=== PATIENT | female | born 1990 | race Caucasian/White ===

== ENCOUNTER 2016-08-26 17:43 | Emergency (ER) | payer MEDICAID ==
[~2016-08-26] VITALS: Ht 165.1 cm; Wt 73.6 kg
--- OUTSIDE RECORDS SUMMARY | 2016-08-26 17:48 | XMS REPORT | Continuity of Care Document ---
Author Author [facility] Organization [facility] Address Unknown Phone Unavailable Care Team Providers Care Media Operator Name Role Phone ZHAO PALOMINO Primary Care Physician [phone] Insurance Providers Guarantor Janet Hdz Address [address] [place] [address] Email DENIED/06/17/16 Payer [facility] Policy Number [id number] Subscriber's Name Janet Hdz Relationship 18 Self Effective Date 16 Expiration Date 16 Advance Directives Directive Response Recorded Date/Time Advanced Directives Type None 06/17/16 6:53am Ordered Resuscitation Status Full Code 06/17/16 10:43am Resuscitation Documents on File No 06/17/16 5:33pm DPOA for Healthcare Only No 06/18/16 10:33am Living Will No 06/17/16 5:33pm Problems Active Problems Medical Problem Onset Date Status Abdominal cramping Unknown Acute Abdominal cramping Unknown Acute Abdominal cramping Unknown Acute Anxiety Unknown Chronic Bipolar 1 disorder Unknown Chronic Contusion of right hip Unknown Acute Depression Unknown Chronic Intentional benzodiazepine overdose Unknown Acute Intoxication by drug Unknown Acute MDD (major depressive disorder), recurrent episode, severe Unknown Multiple personality disorder Unknown Chronic Nausea Unknown Acute PTSD (post-traumatic stress disorder) Unknown Strain of right hip Unknown Acute Past Problems Medical Problem Onset Date Bronchitis Unknown Gastroenteritis Unknown Overdose Unknown Patient left without being seen Unknown UTI (urinary tract infection) Unknown Medications Past Home Medications Medication Directions Ordered Status Buspirone Hcl 10 Mg Tablet, 20 Mg Oral Three Times A Day 06/17/16 Discontinued Clonazepam 0.5 Mg Tablet, 0.5-1 Tab Oral Daily as needed for Anxiety Discontinued Escitalopram Oxalate (Lexapro) 20 Mg Tablet, 20 Mg Oral Bedtime 06/17/16 Discontinued Gabapentin 600 Mg Tablet, 600 Mg Oral Three Times A Day 06/17/16 Discontinued No Daily Meds , 01/04/14 Discontinued Social History Social History Problem Response Recorded Date/Time Onset Date Status Reason for Hospitalization intentional overdose 06/19/2016 11:19am Not Applicable Not Applicable Chewing Tobacco Status No 04/07/2012 2:36am Not Applicable Not Applicable Hx Substance Use No 06/17/2016 6:53am Not Applicable Not Applicable Hx Alcohol Use Y OCCASIONAL 06/17/2016 6:53am Not Applicable Not Applicable Has the pt used tobacco in the last 12 months Yes 06/17/2016 5:59pm Not Applicable Not Applicable Tobacco Usage smoke 07/25/2015 8:39am Not Applicable Not Applicable Query Response Start Date Stop Date Smoking Status Current every day smoker Hospital Discharge Instructions Instructions: Care Instructions: I was in the hospital because (patient own words): I was anxious, have PTSD. Discharge Diet: regular Discharge Activity: as tolerated Follow Up Appointments: Follow-up with primary care physician when she is released from [place] Pending Lab / Results: Follow up w/ your PCP Expected Signs/Symptoms: Not applicable Notify Physician If: Not applicable During Business Hours:: Not applicable After Business Hours:: Please call [phone] and have the stem processing machine operator page the physician. Pain Management/Treatment: Not applicable Wound/Incision Care: Not applicable Condition at time of discharge: Fair Plan of Care Discharge Date 06/19/16 6:20pm Disposition 65 TO [facility] Instructions/Education Provided Adult Overdose (ED) Prescriptions See Medication Section Additional Instructions/Education Medications to be determined by physicians at [place] The only lab pending is confirmation of urine drug screen Care Plan and Goals See Discharge Instructions Section Functional Status Query Response Date Recorded Mobility Status Ambulatory June 17, 2016 12:00pm Assistive Devices None June 17, 2016 12:00pm Activity Limitations None June 17, 2016 12:00pm Feeding Ability Independent June 17, 2016 12:00pm Toileting Ability Independent June 17, 2016 12:00pm Grooming Ability Independent June 17, 2016 12:00pm Dressing Ability Independent June 17, 2016 12:00pm Driving Ability Independent June 17, 2016 12:00pm Housework Ability Independent June 17, 2016 12:00pm Meal Preparation Ability Independent June 17, 2016 12:00pm Ability to complete ADL's impeded by No change June 17, 2016 5:33pm Cognitive/Perceptual Impairments None June 17, 2016 12:00pm Allergies, Adverse Reactions, Alerts Allergen Type Severity Reaction Status Last Updated Latex Allergy Mild ITCHING Active 04/14/16 Immunizations Query Response on File Recorded Date/Time Hx Influenza Vaccination Y unknown 06/17/16 5:59pm Hx Pneumococcal Vaccination unknown 06/17/16 5:59pm Hx Tetanus, Diptheria, Pertussis No 01/04/14 12:15pm Hx Influenza Vaccination Y unknown 06/17/16 5:59pm Hx Tetanus, Diptheria, Pertussis No 01/04/14 12:15pm Influenza Vaccine Hx NONE 06/17/16 6:53am Vital Signs Acute Vital Signs Vital Response Date/Time Temperature (Fahrenheit) 98.8 deg F (96.8 - 99.1) 06/19/2016 4:00pm Temperature (Calculated Celsius) 37.58461 degrees C (36.0 - 37.3) 06/19/2016 4:00pm Pulse Rate (adult) 63 bpm (60 - 100) 06/19/2016 4:11pm Respiratory Rate 20 breaths/min (10 - 20) 06/19/2016 4:00pm O2 Sat by Pulse Oximetry 99 % (90 - 100) 06/19/2016 12:13pm Oxygen Delivery Method Room Air 06/19/2016 4:00pm Blood Pressure 108/57 mm Hg 06/19/2016 4:00pm Blood Pressure Source Automatic Cuff 06/19/2016 4:00pm Height (Feet) 5 feet 06/18/2016 10:33am Height (Inches) 7.00 inches 06/18/2016 10:33am Weight (Kilograms) 57.500 kg 06/18/2016 9:02am Body Mass Index (BMI) 23.0 06/17/2016 6:53am Results Laboratory Results Test Name Result Units Flags Reference Collection Date/Time Result Date/ Time Comments Adenovirus (PCR) NEGATIVE NEGATIVE 04/14/2016 8:03am 04/14/2016 9: 57am Coronavirus Type 229E (PCR) NEGATIVE NEGATIVE 04/14/2016 8:03am 04/14 9:57am Coronavirus Type HKU1 (PCR) NEGATIVE NEGATIVE 04/14/2016 8:03am 04/14 9:57am Coronavirus Type NL63 (PCR) NEGATIVE NEGATIVE 04/14/2016 8:03am 04/14 9:57am Coronavirus Type OC43 (PCR) DETECTED A NEGATIVE 04/14/2016 8:03am 9:57am Human Metapneumovirus (PCR) NEGATIVE NEGATIVE 04/14/2016 8:03am 04/14 9:57am Enterovirus/Rhinovirus (PCR) NEGATIVE NEGATIVE 04/14/2016 8:03am 9:57am Influenza Virus Type A (PCR) NEGATIVE NEGATIVE 04/14/2016 8:03am 9:57am Influenza Virus Type B (PCR) NEGATIVE NEGATIVE 04/14/2016 8:03am 9:57am Parainfluenza Type 1 (PCR) NEGATIVE NEGATIVE 04/14/2016 8:03am 2015 9:57am Parainfluenza Type 2 (PCR) NEGATIVE NEGATIVE 04/14/2016 8:03am 2015 9:57am Parainfluenza Type 3 (PCR) NEGATIVE NEGATIVE 04/14/2016 8:03am 2015 9:57am Parainfluenza Type 4 (PCR) NEGATIVE NEGATIVE 04/14/2016 8:03am 2015 9:57am Respiratory Syncytial Virus (PCR) NEGATIVE NEGATIVE 04/14/2016 8:03am 04/14/2016 9:57am Bordetella parapertussis DNA (PCR) NEGATIVE NEGATIVE 04/14/2016 8: 03am 04/14/2016 9:57am Chlamydia pneumoniae DNA (PCR) NEGATIVE NEGATIVE 04/14/2016 8:03am 9:57am Mycoplasma pneumoniae (PCR) NEGATIVE NEGATIVE 04/14/2016 8:03am 04/14 9:57am White Blood Count 12.6 T/MM3 D H 4.5-11.0 06/18/2016 9:1406/18/2016 9: 44am Red Blood Count 4.79 M/MM3 4.00-5.20 06/18/2016 9:1406/18/2016 9: 44am Hemoglobin 14.7 GM/DL 12-16 06/18/2016 9:1406/18/2016 9:44am Hematocrit 43.8 % 36-46 06/18/2016 9:1406/18/2016 9:44am Mean Corpuscular Volume 91.4 UM3 80-100 06/18/2016 9:1406/18/2016 9: 44am Mean Corpuscular Hemoglobin 30.7 UUG 26-34 06/18/2016 9:142016 9:44am Mean Corpuscular Hemoglobin Concent 33.6 GM/DL 31-37 06/18/2016 9:1406/18/2016 9:44am RDW Standard Deviation 43.0 FL 36.9-50.2 06/18/2016 9:1406/18/2016 9 :44am Platelet Count 230 T/MM3 130-400 06/18/2016 9:1406/18/2016 9:44am Mean Platelet Volume 10.5 UM3 9.4-12.4 06/18/2016 9:1406/18/2016 9: 44am Neutrophils (%) (Auto) 62.9 % 33-66 06/18/2016 9:1406/18/2016 9: 44am Lymphocytes (%) (Auto) 28.1 % 23-45 06/18/2016 9:1406/18/2016 9: 44am Monocytes (%) (Auto) 7.0 % 0-9.0 06/18/2016 9:1406/18/2016 9:44am Eosinophils (%) (Auto) 1.6 % 0-4 06/18/2016 9:1406/18/2016 9:44am Basophils (%) (Auto) 0.2 % 0-2 06/18/2016 9:1406/18/2016 9:44am Immature Granulocyte % (Auto) 0.2 % 0.0-0.5 06/18/2016 9:142016 9:44am Absolute Neutrophils (auto) 7.9 T/MM3 H 1.8-7.7 06/18/2016 9:14am 2016 9:44am Absolute Lymphocytes (auto) 3.5 T/MM3 1-4.8 06/18/2016 9:14am 2016 9:44am Absolute Monocytes (auto) 0.9 T/MM3 H 0-0.8 06/18/2016 9:14am 2016 9:44am Absolute Eosinophils (auto) 0.2 T/MM3 0-0.5 06/18/2016 9:14am 2016 9:44am Absolute Basophils (auto) 0.0 T/MM3 0-0.2 06/18/2016 9:14am 06/18/2016 9:44am Absolute Immature Granulocyte (auto 0.02 T/MM3 0.00-0.03 06/18/2016 9: 14am 06/18/2016 9:44am Icterus Index < 2 0-7 06/19/2016 4:53am 06/19/2016 5:33am Chemistry Specimen Hemolysis < 15 0-25 06/19/2016 4:53am 06/19/2016 5 :33am 0-25: Specimen Exhibited No Hemolysis. Turbidity < 20 0-20 06/19/2016 4:53am 06/19/2016 5:33am Sodium Level 142 MEQ/L 134-144 06/19/2016 4:53am 06/19/2016 5:33am Potassium Level 4.0 MEQ/L 3.6-5 06/19/2016 4:53am 06/19/2016 5:33am Chloride Level 107 MEQ/L 98-107 06/19/2016 4:53am 06/19/2016 5:33am Carbon Dioxide Level 24 MEQ/L 22-30 06/19/2016 4:53am 06/19/2016 5: 33am Anion Gap 11 MEQ/L 5-15 06/19/2016 4:53am 06/19/2016 5:33am Blood Urea Nitrogen 11.0 MG/DL 7-06/19/2016 4:53am 06/19/2016 5: 33am Creatinine 0.8 MG/DL 0.7-1.2 06/19/2016 4:53am 06/19/2016 5:33am BUN/Creatinine Ratio 14 RATIO 6-06/19/2016 4:53am 06/19/2016 5:33am Glomerular Filtration Rate Calc 87 06/19/2016 4:53am 06/19/2016 5: 33am Glucose Level 89 MG/DL 65-110 06/19/2016 4:53am 06/19/2016 5:33am Calculated Osmolality 271 MOSM/KG 261-280 06/19/2016 4:53am 06/19/2016 5:33am Calcium Level 9.6 MG/DL 8.4-10.2 06/19/2016 4:53am 06/19/2016 5:33am Phosphorus Level 3.9 MG/DL 2.5-4.5 06/18/2016 9:14am 06/18/2016 9:50am Total Bilirubin 1.00 MG/DL 0.20-1.30 06/19/2016 4:53am 06/19/2016 5: 33am Alkaline Phosphatase 55 U/L 38-126 06/19/2016 4:53am 06/19/2016 5:33am Total Protein 6.9 G/DL 6.3-8.2 06/19/2016 4:53am 06/19/2016 5:33am Albumin 4.1 G/DL 3.5-5.0 06/19/2016 4:53am 06/19/2016 5:33am Globulin 2.8 G/DL 2.4-3.6 06/19/2016 4:53am 06/19/2016 5:33am Albumin/Globulin Ratio 1.5 RATIO 1.1-2.2 06/19/2016 4:53am 06/19/2016 5 :33am Aspartate Amino Transf (AST/SGOT) 26 U/L 14-36 06/19/2016 4:53am 2016 5:33am Alanine Aminotransferase (ALT/SGPT) 26 U/L 9-52 06/19/2016 4:53am 06/19 5:33am Total Creatine Kinase 83 U/L 30-135 06/17/2016 7:04am 06/17/2016 12: 23pm Magnesium Level 2.2 MG/DL 1.6-2.3 06/19/2016 4:53am 06/19/2016 5:33am Acetaminophen Level < 10 UG/ML L 10-30 06/17/2016 7:04am 06/17/2016 7: 51am TOXIC <4 HR POST INGESTION: >150 MG/L; TOXIC <12 HR POST INGESTION: >50 MG/L Salicylates Level < 1.0 MG/DL L 2-20 06/17/2016 7:04am 06/17/2016 7: 51am Alcohol, Quantitative <10 MG/DL <10 06/17/2016 7:04am 06/17/2016 7: 51am Urine Collection Type CLEANCATCH-MIDSTREAM 06/17/2016 7:33am 2016 7:46am Urine Color YELLOW YELLOW 06/17/2016 7:33am 06/17/2016 7:46am Urine Turbidity CLEAR CLEAR 06/17/2016 7:33am 06/17/2016 7:46am Urine Specific Amelia <=1.005 L 1.015-1.025 06/17/2016 7:33am 2016 7:46am Urine pH 5.5 5.0-8.0 06/17/2016 7:33am 06/17/2016 7:46am Urine Leukocyte Esterase NEGATIVE NEGATIVE 06/17/2016 7:33am 2016 7:46am Urine Nitrite NEGATIVE NEGATIVE 06/17/2016 7:33am 06/17/2016 7:46am Urine Protein NEGATIVE NEGATIVE 06/17/2016 7:33am 06/17/2016 7:46am Urine Glucose (UA) NEGATIVE NEGATIVE 06/17/2016 7:33am 06/17/2016 7: 46am Urine Ketones NEGATIVE NEGATIVE 06/17/2016 7:33am 06/17/2016 7:46am Urine Urobilinogen 0.2 EU/DL NORMAL 06/17/2016 7:33am 06/17/2016 7: 46am Urine Bilirubin NEGATIVE NEGATIVE 06/17/2016 7:33am 06/17/2016 7: 46am Urine Blood NEGATIVE NEGATIVE 06/17/2016 7:33am 06/17/2016 7:46am Urinalysis Comment MICROSCOPIC NOT IND. 06/17/2016 7:33am 2016 7:46am Name: JANET HDZ Unit #: [id number] : 1990 Sex: F DISCHARGE SUMMARY Admit Date: 06/17/16 Report #: [id number] [facility] General Date Date DATE: 06/19/16 TIME: 11:13 Attending Physician Vipul Giron MD Admitting Physician Vipul Giron MD Consulting Physician Jovanna Irvin MD Admitting Diagnosis Overdose Discharge Diagnosis Intentional overdose of benzodiazepine Drug intoxication Posttraumatic stress disorder Major depressive disorder, recurrent episode, severe The patient also carries a past medical history with diagnoses of Bipolar disorder type I, Anxiety, and History of multiple personality disorder Procedures None Laboratory Laboratory Tests Test 06/18/16 09:14 06/19/16 04:53 White Blood Count 12.6T/MM3 (4.5-11.0) Red Blood Count 4.79M/MM3 (4.00-5.20) Hemoglobin 14.7GM/DL (12-16) Hematocrit 43.8% (36-46) Mean Corpuscular Volume 91.4UM3 (80-100) Mean Corpuscular Hemoglobin 30.7UUG (26-34) Mean Corpuscular Hemoglobin Concent 33.6GM/DL (31-37) RDW Standard Deviation 43.0FL (36.9-50.2) Platelet Count 230T/MM3 (130-400) Mean Platelet Volume 10.5UM3 (9.4-12.4) Immature Granulocyte % (Auto) 0.2% (0.0-0.5) Neutrophils (%) (Auto) 62.9% (33-66) Lymphocytes (%) (Auto) 28.1% (23-45) Monocytes (%) (Auto) 7.0% (0-9.0) Eosinophils (%) (Auto) 1.6% (0-4) Basophils (%) (Auto) 0.2% (0-2) Absolute Immature Granulocyte (auto 0.02T/MM3 (0.00-0.03) Absolute Neutrophils (auto) 7.9T/MM3 (1.8-7.7) Absolute Lymphocytes (auto) 3.5T/MM3 (1-4.8) Absolute Monocytes (auto) 0.9T/MM3 (0-0.8) Absolute Eosinophils (auto) 0.2T/MM3 (0-0.5) Absolute Basophils (auto) 0.0T/MM3 (0-0.2) Turbidity < 20 (0-20) < 20 (0-20) Sodium Level 143MEQ/L (134-144) 142MEQ/L (134-144) Potassium Level 4.5MEQ/L (3.6-5) 4.0MEQ/L (3.6-5) Chloride Level 108MEQ/L (98-107) 107MEQ/L (98-107) Carbon Dioxide Level 23MEQ/L (22-30) 24MEQ/L (22-30) Anion Gap 12MEQ/L (5-15) 11MEQ/L (5-15) Blood Urea Nitrogen 14.0MG/DL (7-17) 11.0MG/DL (7-17) Creatinine 0.8MG/DL (0.7-1.2) 0.8MG/DL (0.7-1.2) Glomerular Filtration Rate Calc 87 87 BUN/Creatinine Ratio 18RATIO (6-26) 14RATIO (6-26) Glucose Level 70MG/DL (65-110) 89MG/DL (65-110) Calculated Osmolality 274MOSM/KG (261-280) 271MOSM/KG (261-280) Calcium Level 9.5MG/DL (8.4-10.2) 9.6MG/DL (8.4-10.2) Phosphorus Level 3.9MG/DL (2.5-4.5) Magnesium Level 2.2MG/DL (1.6-2.3) 2.2MG/DL (1.6-2.3) Icterus Index < 2 (0-7) < 2 (0-7) Albumin 4.3G/DL (3.5-5.0) 4.1G/DL (3.5-5.0) Chemistry Specimen Hemolysis < 15 (0-25) < 15 (0-25) Total Bilirubin 1.00MG/DL (0.20-1.30) Aspartate Amino Transf (AST/SGOT) 26U/L (14-36) Alanine Aminotransferase (ALT/SGPT) 26U/L (9-52) Alkaline Phosphatase 55U/L (38-126) Total Protein 6.9G/DL (6.3-8.2) Globulin 2.8G/DL (2.4-3.6) Albumin/Globulin Ratio 1.5RATIO (1.1-2.2) Microbiology none Radiology none History of Present Illness Patient is a 25-year-old female who was brought to the emergency room this morning for evaluation of benzodiazepine overdose. It is reported that she took 15 tablets of 0.5 milligram tabs of Klonopin approximately 5-6 a.m. this morning. Total ingestion is Klonopin 7.5 milligrams with half-life is 20- 50 hours. She reports that she took them all at one time to help with her anxiety, and denies the intention of self-harm. The WBC count is normal 8.7, hemoglobin 14.9, hematocrit 44, platelet count 237. Sodium is 145, potassium 3.8, BUN 10, creatinine 0.7. Alcohol is undetectable, acetaminop hen and salicylate levels are negative. Urine drug screen was obtained that was positive for amphetamines, benzodiazepine, and cannabis. Urinalysis is negative and urine test is also negative. While in the emergency room. Patient is uncooperative and attempts to run out of the department. She is belligerent towards nursing staff and his aggressive, hitting, kicking, spitting. Given Police Department were contacted twice while in the emergency room to assist with safety restraint. Given patient's aggressive behavior towards others. Hospitalist services were contacted and accepted patient for outpatient admission for further evaluation and monitoring. It is expected that her stay will be less than 2 overnights. She is seen on initial examination, while still in the emergency room. She is very upset, yelling, attempting to get out of bed and continues to be physically and verbally aggressive towards nursing staff. Hospital Course 06/18/16- Patient has continued to demonstrate aggressive behaviors overnight. Attempted to elope multiple times yesterday requiring EDE assistance. She continues to make suicidal statements with plan. She is currently sedated. Psych consult is in place- notified yesterday by OTOLARYNGOLOGY SURGEON. Suspect she will need inpatient psychiatric monitoring and stabilization. Polysubstance abuse, likely methamphetamine toxicity with severe anxiety and resultant benzo OD. Need to recheck labs, will do so if pt. will cooperate. Start IVF if able. Pt's severe agitation has limited some care. ALICIA Hammer. Continue supportive care. DC disposition per psych recommendations. Awaiting psych eval and placement. Pt more calm with chemical restraints. Cont. physical restrains and obtain renal panel and EKG to make sure pt not having any major complications from the ativan/haldol she is receiving in high doses. 06/19/2016-Dr. Wynn The patient was resting in bed prior to my arrival. Heart rate was in the mid 90s to 100. Systolic blood pressure in the low 100s. Oxygenation is normal. When I introduced myself the patient became tearful and anxious and stated she just wanted to go home. She stated she had a job interview and her daughter to take care of. I stated that we needed to get her emotions and depression under cont rol first. Transfer to [facility] has already been arranged and a doctor to doctor call had been made by physicians yesterday. She appears medically stable. Comments a metabolic profile today is entirely normal. She is oxygenating well and is afebrile. Heart rate becomes elevated when she is agitated but then normalizes. She is alert and appears in no physical distress. Chest is clear to auscultation. Cardiovascular reveals a regular rate and rhythm. Skin is warm and dry and without rashes. Neurologic reveals no focal deficits. She is eating and drinking without difficulties. EKG yesterday was normal. Telemetry shows no arrhythmias. Plan to transfer to inpatient psychiatric facility per recommendations of psychiatry. The patient may not leave AGAINST MEDICAL ADVICE. She is currently in one point leather restraint at her ankle. She has escaped the hospital during this hospitalization and had to be brought back in. She needs to remain in restraint this time. Will transfer to psychiatric inpatient facility when transportation has been arranged. Problems: (1) Intentional benzodiazepine overdose Status: Acute (2) Bipolar 1 disorder Status: Chronic (3) Anxiety Status: Chronic (4) Depression Status: Chronic (5) Multiple personality disorder Status: Chronic (6) Intoxication by drug Status: Acute Code Status Full Code Home Meds Discontinued Reported Medications Escitalopram Oxalate (Lexapro) 20 Mg Tablet, 20 MG PO HS 06/17/16 Gabapentin (Gabapentin) 600 Mg Tablet, 600 MG PO TID 06/17/16 Clonazepam (Clonazepam) 0.5 Mg Tablet, 0.5-1 TAB PO DAILY Y for ANXIETY 06/17/16 Buspirone HCl (Buspirone HCl) 10 Mg Tablet, 20 MG PO TID 06/17/16 Face to Face Encounter I met with patient on the day of dismissal and discussed follow up appointments , medications, and safety plan. Discharge Disposition transfer to [facility] Copies To 1: MEGHAN MARINELLI STEPHANIE L MD Jun 19, 2016 11:16 Procedures Procedure Status Date Provider(s) Chest x-ray 2vw frontal&latl Completed 04/14/16 Chylmd pneum dna amp probe Completed 04/14/16 M.pneumon dna amp probe Completed 04/14/16 Resp virus - targets Completed 04/14/16 Detect agent nos dna amp Completed 04/14/16 Emergency dept visit Completed 04/14/16 Encounters Encounter Location Arrival/Admit Date Discharge/Depart Date Attending Provider Discharged Inpatient (obs) [facility] 06/17/16 10:42am 06/19/16 6 :20pm VIPUL GIRON MD Departed Emergency Room [facility] 04/14/16 7:48am 04/14/16 9: 35am MARY MONDRAGON DO
[2016-08-26 17:50] VITALS: Ht 165.1 cm; Wt 73.6 kg
[2016-08-26] MEDS ORDERED: FLUT12AE5 INH (18:45)
[2016-08-26] MEDS ORDERED: CLON0.5T4 PO (18:45)
[2016-08-26] MEDS ORDERED: ALBU8.5H INH (18:45)
[2016-08-26] MEDS ORDERED: OLAN10TA21 PO (18:45)
--- NOTE | 2016-08-26 18:45 | NUR ---
PROVIDER DR. SCHROEDER AT BEDSIDE FOR EXAM.
[2016-08-26] MEDS ORDERED: DIVA500T55 PO (18:50)
[2016-08-26] MEDS ORDERED: ESCI10TA47 PO (18:50)
[2016-08-26] MEDS ORDERED: METO25TA6 PO (18:50)
--- NOTE | 2016-08-26 18:51 | ERPDOC ---
Departure Disposition Decision Date: August 26, 2016 Disposition Decision Time: 19:56 Disposition: 07 AGAINST MEDICAL ADVICE Impression Impression Impression: Primary Impression: Closed head injury Encounter type: initial encounter Qualified Codes: S09.90XA - Unspecified injury of head, initial encounter Severity: Moderate Condition: Against Medical Advice Seen By: Physician only Referrals: ZHAO PALOMINO (PCP) MEGHAN MARINELLI DO (Family) 1 Day Patient Instructions: Head Injury (ED) Problems/Meds/Labs Reviewed?: Yes Medications reviewed and manag: Yes Follow up care ordered?: Yes Mental Status: Alert, Oriented Pediatric Illness HPI General Chief Complaint: Fall Stated Complaint: FALL/ HEAD INJURY Time Seen by MD: 18:42 Source: patient Exam Limitations: no limitations HPI - Pediatric Illness Initial Comments 26-year-old female presents to the emergency department after suffering a mechanical fall on the stairs. Patient states that she did strike her head during her fall. The fall was mechanical in nature when the patient tripped over her flip-flop. Patient notes a generalized headache. No neck pain. No loss of consciousness. Pain is mild. No radiation. Pain is dull. Patient denies any other injuries. No other complaints or associated symptoms. Patient was home when the incident occurred. Symptoms have been persistent in nature since onset. She does not note any exacerbating or remitting factors. No other complaints or associated symptoms. Occurred At: home Onset: Constant Allergies: Coded Allergies: latex (Verified Allergy, Mild, ITCHING, 08/26/16) Pediatric PMH Pediatric PMH PMH Comments Psychiatric History - Multiple Personality disorder Past Medical History GI: constipation Integumentary: psoriasis Psychological: depression Pediatric Surgical Hx Surgical Hx Comments Negative. Surgical History General: other, tonsils Reproductive/: Family History Family PMH: FOUND: other Family History Comments Negative. Vaccines Hx Tetanus, Diptheria, Pertuss: No Social History Tobacco Usage: smoke # of Packs/Tins per Day: 1 Alcohol Usage: rarely Drug Usage: none Sexuality: male partner Residence: home Review of Systems Constitutional Constitutional: DENIES: chills, fever Eyes General: DENIES: erythema, exudate Lids/Accessories: DENIES: erythema, swelling Vision: DENIES: acuity, blurring ENMT Ears: DENIES: drainage, erythema Hearing: DENIES: hearing loss Balance: DENIES: ataxia, falling to one side Sinuses: DENIES: congestion, pain Nose: DENIES: nosebleeds, pain Mouth/Throat: DENIES: painful swallowing, sore throat Teeth: DENIES: pain Jaw: DENIES: pain Cardiovascular Cardiac: DENIES: chest pain, dyspnea on exertion Rhythm/Rate: DENIES: irregular beat, palpitations Vascular: DENIES: pedal edema, unilateral swelling Pulmonary Respiratory: DENIES: cough, dyspnea, pleuritic chest pain, sputum GI Upper Abdomen: DENIES: nausea, pain, vomiting Lower Abdomen: DENIES: diarrhea, pain General: DENIES: dysuria, frequency Musculoskeletal General: DENIES: joint pain, tenderness Integumentary Skin: DENIES: itching, rash Neurological General: DENIES: headache, numbness, weakness Psychiatric Psychiatric: DENIES: emotional instability, suicidal ideation/attempt Hematologic/Lymphatic Hematologic/Lymphatic: DENIES: frequent nosebleeds, lymphadenopathy Allergic/Immunological Allergic/Immunoligical: DENIES: allergic reactions, hives Physical Exam General General Nourishment: well nourished, well developed, appears stated age, no acute distress, adult General Body Habitus: well groomed Vitals and Pain First Documented Vital Signs Date Time Temp Pulse Resp B/P Pulse Ox O2 Delivery O2 Flow Rate FiO2 08/26/16 17:50 98.8 84 18 124/64 98 Room Air Weight: Kilograms: 73.600 Height (feet): 5 Height (inches): 5.00 Triage Pain Scale: RN VS reviewed by Provider: Yes Normal Exams: Eyes: Pupils are PERRLA w/ EOMI, No scleral icterus, irritation, or foreign bodies noted ENMT: No facial trauma, nasal exudates, pharyngeal erythema, or exudates are noted Dental: No fractured, loose, or missing teeth noted Neck: without adenopathy, JVD, bruits or thyromegaly Chest/Resp: Clear all whatley, with good airflow, and symmetry bilaterally CV: Regular rate and rhythm, without murmur or gallop, Pulses 2+ all extremities, capillary refill, <2 seconds all ext., no pedal edema noted Abdomen: Bowel sounds positive, soft, non-tender, non-distended, no hepatosplenomegaly, masses or bruits noted Lymphatic: No lymphadenopathy, or lymphedema noted Musculoskeletal: No tenderness, or deformity noted, good range of motion, all extremities Integumentary: No rashes, hives, or bruising noted, hair and nails, without abnormality Neurologic: Patient is alert, and oriented, cranial nerves, motor/sensory/ cerebellar, exams w/o gross deficits, to observation Psychiatric: Patient exhibits, appropriate attention, emotion and affect ENMT (brief) Comments Mild bruising noted to the left cheek. No crepitus or tenderness over the cheekbone. No raccoon eyes, Garcia sign, hemotympanum or CSF leak. The midface is stable. No septal or auricular hematoma. No malocclusion of the jaw. No midline tenderness to the cervical/thoracic/lumbar spine. Pelvis is nontender to compression. Gait is stable. Neck (brief) Neck: FOUND: trachea midline, NOT FOUND: tenderness Differential Diagnoses Considering: Other (concussion/closed head injury/intercerebral hemorrhage/ fracture) Progress Results/Orders Orders Procedure Category Date Status Time LAB 08/26/16 Complete Qualitative, Urine 18:49 Tetanus,Diphth,A PHA 08/26/16 Complete Pertus (Tdap) (Adacel) 20:00 Lab Results Laboratory Tests Test 08/26/16 18:52 Urine Test Negative Medications Current ED Medications Diphtheria/ Tetanus/Acell Pertussis (Adacel) 0.5 ml O ONCE IM ; Start 08/26/16 at 20:00; Stop 08/26/16 at 20:01; Status DC Progress Progress Patient was noted to have an abrasion over her bilateral knees. She declines x- ray imaging of the knees. Patient's tetanus status was updated. Patient is alert and oriented 4. Patient is clinically sober. Patient refuses CT scan of the head/face/neck. Patient is aware that refusing further evaluation and treatment could result in and/or permanent disability. Patient verbalizes agreement and understanding. Patient signed the AMA form and leaves the emergency department at this time. Patient's friend is at bedside and is supportive of her decision. Patient underwent repeat attempt at counseling in order to get her to change her mind stay for further evaluation and treatment which he declines. Patient signed the AMA form and leaves the emergency department at this time AGAINST MEDICAL ADVICE. She is to return to the emergency Department if her condition worsens or changes in any manner or if she changes her mind and wishes to be re-evaluated. She is [facility]. Patient was provided with a work note at her request. Patient signed the AMA form and leaves the emergency department at this time AGAINST MEDICAL ADVICE. Risk vs benefits were discussed in detail with the patient who verbalized agreement and understanding but does not change her mind. JORDON SCHROEDER DO August 26, 2016 18:51
--- NOTE | 2016-08-26 19:45 | NUR ---
STATUS PT SITTING UP IN CART. IS REQUESTING HOW LONG WAIT WILL BE BEFORE DISMISSAL. 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 PT STATES "IS THERE ANY WAY I COULD GET THE WORK NOTE AND GO HOME, OR HOW LONG DO YOU THINK IT WILL BE?" RADIOLOGY CONTACTED, AND ADVISED THAT PT IS NEXT TO GO FOR SCANS ONCE CURRENT PT BACK IN .
--- NOTE | 2016-08-26 19:49 | NUR ---
STATUS PT REPORTS IS GOING TO HAVE TO LEAVE SOONER THAN EXPECTED. PROVIDER NOTIFIED. DR. SCHROEDER AT BEDSIDE TO SPEAK WITH PT.
[2016-08-26] MEDS ORDERED: TETANUS,DIPHTH,a PERTUS (Tdap) 0.5 ML VIAL IM ONE (20:00)
[2016-08-26 20:02] VITALS: BP 116/62; PULSE 67; RESP 18; TEMP 98.8; O2SAT 97
--- NOTE | 2016-08-26 20:02 | NUR ---
AMA RISKS OF LEAVING AMA REVIEWED WITH PT BY THIS RN WITH INSTRUCTIONS TO RETURN TO ER WITH WORSENING CONDITION. PT VERBALIZES UNDERSTANDING OF INSTRUCTIONS, DENIES QUESTIONS. DENIES CHANGE IN PAIN, WITH CURRENT RATING 9/10. PT AMBULATES OUT OF ER WITH STEADY GAIT ACCOMP BY FRIEND AT THIS TIME.
== END 2016-08-26 20:02 | disposition left against medical advice (07) ==
LOC: ED 17:43
DX: S00.83XA Contusion of other part of head, initial encounter (principal); S80.212A Abrasion, left knee, initial encounter; S80.211A Abrasion, right knee, initial encounter; W10.8XXA Fall (on) (from) other stairs and steps, initial encounter; Y93.9 Activity, unspecified; Y92.008 Other place in unspecified non-institutional (private) residence as the place of occurrence of the external cause; Y99.8 Other external cause status
CPT/HCPCS: 81025

== ENCOUNTER 2016-09-13 09:18 | Emergency (ER) | payer MEDICAID ==
[~2016-09-13] VITALS: Ht 165.1 cm; Wt 74.7 kg
[~2016-09-13 09:18] MED LIST: ALBU8.5H INH; CLON0.5T4 PO; DIVA500T55 PO; ESCI10TA47 PO; FLUT12AE5 INH; METO25TA6 PO; OLAN10TA21 PO
[2016-09-13 09:19] VITALS: Ht 165.1 cm; Wt 74.7 kg
--- OUTSIDE RECORDS SUMMARY | 2016-09-13 09:21 | XMS REPORT | Continuity of Care Document ---
Author Author [facility] Organization [facility] Address Unknown Phone Unavailable Care Team Providers Care Manpower Development Specialist Manager Name Role Phone GEORGETTE, ZHAO Delatorre Primary Care Physician [phone] Insurance Providers Guarantor Janet Hdz Address [address] [place] [address] Email DENIED 08-26-16 Payer [facility] Policy Number [id number] Subscriber's Name Janet Hdz Relationship 18 Self Effective Date 16 Expiration Date 16 Advance Directives Directive Response Recorded Date/Time Advanced Directives Type None 08/26/16 6:38pm Chief Complaint and Reason for Visit Chief Complaint Fall Reason for Visit Closed head injury Problems Active Problems Medical Problem Onset Date [...] Problems Medical Problem Onset Date Bronchitis Unknown Closed head injury Unknown Gastroenteritis Unknown Overdose Unknown Patient left without being seen Unknown UTI (urinary tract infection) Unknown Medications Current Home Medications Medication Dose Units Route Directions Days Qty Instructions Start Date Albuterol Sulfate (Proair Hfa 90 Mcg/Actuation) 8.5 Gm Hfa.aer.ad 1 Puff Inhalation 8 08/26/16 Clonazepam 0.5 Mg Tablet 1 Tab Oral Daily 30 08/26/16 Divalproex Sodium (Divalproex Sodium Er) 500 Mg Tab.er.24h 1 Tab Oral Bedtime 60 08/26/16 Escitalopram Oxalate 10 Mg Tablet 1 Tab Oral Daily 30 08/26/16 Fluticasone Propionate (Flovent Hfa 110MCG) 120 Puff/12 G Inhaler 1 Puff Inhalation Twice A Day 12 08/26/16 Metoprolol Tartrate 25 Mg Tablet 1 Tab Oral Twice A Day as needed for Anxiety 60 08/26/16 Olanzapine 10 Mg Tablet 1 Tab Oral Bedtime 30 08/26/16 Past Home Medications Medication Directions Ordered Status [...] Problem Response Recorded Date/Time Onset Date Status Chewing Tobacco Status No 04/07/2012 2:36am Not Applicable Not Applicable Hx Substance Use No 08/26/2016 6:40pm Not Applicable Not Applicable Hx Alcohol Use Y OCCASIONAL 08/26/2016 6:40pm Not Applicable Not Applicable Has the pt used tobacco in the last 12 months Yes 06/17/2016 5:59pm Not Applicable Not Applicable Tobacco Usage smoke 07/25/2015 8:39am Not Applicable Not Applicable Query Response Start Date Stop Date Smoking Status Current every day smoker Hospital Discharge Instructions No hospital discharge instructions. Plan of Care Discharge Date 08/26/16 8:02pm Disposition 07 AGAINST MEDICAL ADVICE Condition at Discharge Against Medical Advice Instructions/Education Provided Head Injury (ED) Prescriptions See Medication Section Referrals ZHAO PALOMINO Address: [address] [place] [id number] Note: MEGHAN MARINELLI DO Order Date: 2 Days Address: [address] [address] Note: Care Plan and Goals Physician Care Plan Problem: Closed Head Injury / AMA Goal: Follow up with primary care provider Instructions: Take medications and follow care plan as discussed/written Functional Status No functional status results. Allergies, Adverse Reactions, Alerts Allergen Type Severity Reaction Status Last Updated Latex Allergy Mild ITCHING Active 08/26/16 Immunizations Query Response on File Recorded Date/Time Hx Influenza Vaccination Y unknown 06/17/16 5:59pm Hx Pneumococcal Vaccination unknown 06/17/16 5:59pm Hx Tetanus, Diptheria, Pertussis No 01/04/14 12:15pm Hx Influenza Vaccination Y unknown 06/17/16 5:59pm Hx Tetanus, Diptheria, Pertussis No 01/04/14 12:15pm Influenza Vaccine Hx NONE 08/26/16 6:40pm Vital Signs Acute Vital Signs Vital Response Date/Time Temperature (Fahrenheit) 98.8 deg F (96.8 - 99.1) 08/26/2016 8:02pm Temperature (Calculated Celsius) 37.18099 degrees C (36.0 - 37.3) 08/26/2016 8:02pm Pulse Rate (adult) 67 bpm (60 - 100) 08/26/2016 8:02pm Respiratory Rate 18 breaths/min (10 - 20) 08/26/2016 8:02pm O2 Sat by Pulse Oximetry 97 % (90 - 100) 08/26/2016 8:02pm Oxygen Delivery Method Room Air 06/19/2016 4:00pm Blood Pressure 116/62 mm Hg 08/26/2016 8:02pm Blood Pressure Source Automatic Cuff 06/19/2016 4:00pm Height (Feet) 5 feet 08/26/2016 5:50pm Height (Inches) 5.00 inches 08/26/2016 5:50pm Weight (Kilograms) 73.600 kg 08/26/2016 5:50pm Body Mass Index (BMI) 27.0 08/26/2016 5:50pm Results Laboratory Results Test Name Result Units Flags Reference Collection Date/Time Result Date/ Time Comments White Blood Count 12.6 T/MM3 D H 4.5-11.0 06/18/2016 9:14am 06/18/2016 9: 44am Red Blood Count 4.79 M/MM3 4.00-5.20 06/18/2016 9:14am 06/18/2016 9: 44am Hemoglobin 14.7 GM/DL 12-16 06/18/2016 [...] Neutrophils (%) (Auto) 62.9 % 33-66 06/18/2016 9:06/18/2016 9: 44am Lymphocytes (%) (Auto) 28.1 % 23-45 06/18/2016 9:06/18/2016 9: 44am Monocytes (%) (Auto) 7.0 % 0-9.0 06/18/2016 9:1406/18/2016 9:44am Eosinophils (%) (Auto) 1.6 % 0-4 06/18/2016 9:06/18/2016 9:44am Basophils (%) (Auto) 0.2 % 0-2 06/18/2016 9:1406/18/2016 9:44am Immature Granulocyte % (Auto) 0.2 % 0.0-0.5 06/18/2016 9:142016 9:44am Absolute Neutrophils (auto) 7.9 T/MM3 H 1.8-7.7 06/18/2016 9:142016 9:44am Absolute Lymphocytes (auto) 3.5 T/MM3 1-4.8 06/18/2016 9:142016 9:44am Absolute Monocytes (auto) 0.9 T/MM3 H [...] CLEAR 06/17/2016 7:33am 06/17/2016 7:46am Urine Specific [place] <=1.005 L 1.015-1.025 06/17/2016 7:33am 2016 7:46am [...] MICROSCOPIC NOT IND. 06/17/2016 7:33am 2016 7:46am Procedures Procedure Status Date Provider(s) Routine venipuncture Completed 06/17/16 Routine venipuncture Completed 06/17/16 Comprehen metabolic panel Completed 06/17/16 Comprehen metabolic panel Completed 06/17/16 Renal function panel Completed 06/17/16 Drug test prsmv instrmnt Completed 06/17/16 Drug screen quantalcohols Completed 06/17/16 Analgesics non-opioid 1 or 2 Completed 06/17/16 Analgesics non-opioid 1 or 2 Completed 06/17/16 Urinalysis auto w/o scope Completed 06/17/16 Urine test Completed 06/17/16 Assay of ck (cpk) Completed 06/17/16 Assay of magnesium Completed 06/17/16 Assay of magnesium Completed 06/17/16 Complete cbc w/auto diff wbc Completed 06/17/16 Complete cbc w/auto diff wbc Completed 06/17/16 Electrocardiogram tracing Completed 06/17/16 Electrocardiogram tracing Completed 06/17/16 Hydrate iv infusion add-on Completed 06/17/16 Ther/proph/diag inj sc/im Completed 06/17/16 Ther/proph/diag inj iv push Completed 06/17/16 Tx/pro/dx inj new drug addon Completed 06/17/16 Tx/pro/dx inj new drug addon Completed 06/17/16 Emergency dept visit Completed 06/17/16"HOSPITAL OBSERVATION SERVICE, PER HOUR" Completed 06/17/16"HOSPITAL OBSERVATION SERVICE, PER HOUR" Completed 06/17/16"HOSPITAL OBSERVATION SERVICE, PER HOUR" Completed 06/17/16"HOSPITAL OBSERVATION SERVICE, PER HOUR" Completed 06/17/16"HOSPITAL OBSERVATION SERVICE, PER HOUR" Completed 06/17/16"INJECTION, HALOPERIDOL, UP TO 5 MG" Completed 06/17/16"INJECTION, HALOPERIDOL, UP TO 5 MG" Completed 06/17/16"INJECTION, HALOPERIDOL, UP TO 5 MG" Completed 06/17/16"INJECTION, HALOPERIDOL, UP TO 5 MG" Completed 06/17/16"INJECTION, LORAZEPAM, 2 MG" Completed 06/17/16"INJECTION, LORAZEPAM, 2 MG" Completed 06/17/16"INJECTION, LORAZEPAM, 2 MG" Completed 06/17/16"INJECTION, LORAZEPAM, 2 MG" Completed 06/17/16"INJECTION, LORAZEPAM, 2 MG" Completed 06/17/16"INJECTION, LORAZEPAM, 2 MG" Completed 06/17/16"INJECTION, LORAZEPAM, 2 MG" Completed 06/17/16"INJECTION, LORAZEPAM, 2 MG" Completed 06/17/16"INJECTION, LORAZEPAM, 2 MG" Completed 06/17/16"INJECTION, LORAZEPAM, 2 MG" Completed 06/17/16"INFUSION, NORMAL SALINE SOLUTION , 1000 CC" Completed 06/17/165% DEXTROSE/NORMAL SALINE (500 ML=1 UNIT) Completed 06/17/16 Encounters Encounter Location Arrival/Admit Date Discharge/Depart Date Attending Provider Departed Emergency Room [facility] 08/26/16 5:43pm 08/26/16 8: 02pm JORDON SCHROEDER DO Discharged Inpatient (obs) [facility] 06/17/16 10:42am 06/19/16 6 :20pm TEQUILA GIRON MD Recent Diagnosis
[2016-09-13] MEDS ORDERED: PREN1TAB73 PO (09:42)
[2016-09-13] MEDS ORDERED: PYRIDOXINE 100 MG TABLET PO ONE (09:45)
[2016-09-13] MEDS ORDERED: DiphenhydrAMINE 25 MG CAPSULE PO ONE (09:45)
--- NOTE | 2016-09-13 09:46 | ERPDOC ---
Departure Disposition Decision Date: September 13, 2016 Disposition Decision Time: 10:24 Disposition: 01 DISCHARGED HOME, SELF-CARE Impression Impression Impression: Primary Impression: Morning sickness Additional Impression: Weeks of gestation: less than 8 weeks Qualified Codes: Z3A.01 - Less than 8 weeks gestation of Severity: Moderate Condition: Improved Seen By: Physician only Referrals: ZHAO PALOMINO (PCP) 1 Week OTHER (Family) Patient Instructions: Acute Nausea and Vomiting (ED) Problems/Meds/Labs Reviewed?: Yes Medications reviewed and manag: Yes Additional Instructions: You have nausea and vomiting of early . Vitamin B6 and benadryl can help this a lot. Take the zofran if the B6 and benadryl don't control your nausea. Follow up with your doctor in the next week. Departure Forms: Return to Work/School Permit Follow up care ordered?: Yes Mental Status: Alert, Oriented Scripts Ondansetron (Zofran Odt) 4 Mg Tab.rapdis 4 MG PO QID Y for NAUSEA &/OR VOMITING, #20 TAB 0 Refills Prov: AUGUSTJOSIAS Cid DO 09/13/16 HPI - Abdominal Pain General Chief Complaint: Nausea,Vomiting,Diarrhea Stated Complaint: PUKING BLOOD Time Seen by Provider: 09:31 Source: patient History/Exam Limitations: no limitations HPI - Abdominal Pain Initial Comments 26yo woman presents to the ER today for N/V. Pt is 7wks ; has significant morning sickness. Pt is not taking anything for her morning sickness , because "I don't know what to take". Pt had similar sx with her first ; can't remember what she took during her last . Pt feels like she vomited some blood while at work today; no gross blood, but she had the taste of blood in her mouth. Pt was sent home from work after vomiting x2. Occurred At: home, work Onset: Rapid, Constant Duration: 4-6 hrs Quality: cramping Location: periumbilical Activities at Onset: rest Associated Symptoms: nausea/vomiting Hx of Similar Symptoms: Yes Allergies: Coded Allergies: latex (Verified Allergy, Mild, ITCHING, 09/13/16) No Known Drug Allergies (Verified Allergy, Unknown, 09/13/16) Past History Patient Surgical History Tonsilectomy Past Medical History Hx Echocardiogram: No GI: constipation Integumentary: psoriasis Psychological: depression Surgical History General: other, tonsils Reproductive/: Family History Family PMH: FOUND: other Vaccines Hx Influenza Vaccination: Yes (unknown) Hx Tetanus, Diptheria, Pertuss: No Social History Does patient use chewing tobac: No # of Packs/Tins per Day: 1 Second Hand Exposure: No Substance Use Type: does not use Alcohol Intake: occasionally, a few times a month Marital Status: In a relationship Sexuality: male partner Housing: house Household Members: significant other, children Service: No Current Occupational Status: employed 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 Hazard: No Advance Directives: Yes Full Code Review of Systems GI Upper Abdomen: nausea, vomiting All other Systems All Other Systems: Reviewed and Negative Physical Exam General General Nourishment: well nourished, well developed, appears stated age, no acute distress, adult, obese General Body Habitus: well groomed Vitals and Pain First Documented Vital Signs Date Time Temp Pulse Resp B/P Pulse Ox O2 Delivery O2 Flow Rate FiO2 09/13/16 09:19 98.2 74 16 118/72 98 Room Air Weight: Kilograms: 74.700 Height (feet): 5 Height (inches): 5.00 Triage Pain Scale: RN VS reviewed by Provider: Yes Normal Exams: Head: Normocephalic w/o trauma Eyes: Pupils are PERRLA w/ EOMI, No scleral icterus, irritation ENMT: No facial trauma, nasal exudates, pharyngeal erythema Neck: Full range of motion, without adenopathy, JVD Lymphatic: No lymphadenopathy Musculoskeletal: No tenderness, or deformity noted Integumentary: No rashes, hives, or bruising noted Neurologic: Patient is alert, and oriented Psychiatric: Patient exhibits, appropriate attention Respiratory (brief) Respiratory: FOUND: clear all whatley, equal bilaterally, symmetrical, NOT FOUND : rales, wheezes Cardiovascular (brief) Cardiac: FOUND: regular rate, regular rhythm, NOT FOUND: click, gallop, murmur , pedal edema, peripheral edema, rub Capillary Refill: <2 sec Pulses: all distal extremities, equal, strong Abdomen (brief) Abdominal Brief: FOUND: bowel normo active x4, soft, NOT FOUND: distended, hepatosplenomegaly, pulsatile mass, tender Differential Diagnoses Considering: Dehydration, Gastroenteritis, Hyponatremia, Hypokalemia, Hypoglycemia, Pneumonia, Progress Results/Orders Orders Procedure Category Date Status Time Hemagram - Cbc No Diff LAB 09/13/16 Complete Bmp - Basic Metabolic LAB 09/13/16 Complete Panel INR LAB 09/13/16 Complete 09:31 PTT LAB 09/13/16 Complete 09:31 Pyridoxine (Vitamin PHA 09/13/16 Complete B-6) 09:45 Diphenhydramine PHA 09/13/16 Complete (Benadryl) 09:45 Lab Results Laboratory Tests Test 09/13/16 09:49 White Blood Count 9.5T/MM3 Red Blood Count 4.43M/MM3 Hemoglobin 13.7GM/DL Hematocrit 40.7% Mean Corpuscular Volume 91.9UM3 Mean Corpuscular Hemoglobin 30.9UUG Mean Corpuscular Hemoglobin Concent 33.7GM/DL RDW Standard Deviation 41.6FL Platelet Count 263T/MM3 Mean Platelet Volume 9.5UM3 Prothromb Time International Ratio 1.14 Activated Partial Thromboplast Time 34.5SEC Turbidity < 20 Sodium Level 144MEQ/L Potassium Level 3.7MEQ/L Chloride Level 107MEQ/L Carbon Dioxide Level 25MEQ/L Anion Gap 12MEQ/L Blood Urea Nitrogen 4.0MG/DL Creatinine 0.6MG/DL Glomerular Filtration Rate Calc 121 BUN/Creatinine Ratio 7RATIO Glucose Level 88MG/DL Calculated Osmolality 273MOSM/KG Calcium Level 9.1MG/DL Icterus Index < 2 Chemistry Specimen Hemolysis < 15 Medications Current ED Medications Pyridoxine HCl (Vitamin B-6) 100 mg O ONCE PO Last administered on 09/13/16 09:45; Start 09/13/16 at 09:45; Stop 09/13/16 at 09:46; Status DC Diphenhydramine HCl (Benadryl) 50 mg O ONCE PO Last administered on 09/13/16 09:45; Start 09/13/16 at 09:45; Stop 09/13/16 at 09:46; Status DC Progress Progress Pt with improved nausea. No further vomiting or hematemesis while here. Hemagram , BMP, and coags all wnl. Will d/c to home with recommendations to use pyridoxine and benadryl prn for nausea. Pt voiced understanding of dx, prognosis , tx, and f/u need. JOSIAS TRACY DO September 13, 2016 09:46
[2016-09-13 09:59] LABS: HCT - HEMATOCRIT 40.7 % (36-46); HGB - HEMOGLOBIN 13.7 GM/DL (12-16); MEAN CORPUSCULAR HGB 30.9 UUG (26-34); MEAN CORPUSCULAR HGB CONC(MCHC 33.7 GM/DL (31-37); MEAN CORPUSCULAR VOLUME 91.9 UM3 (80-100); MEAN PLATELET VOLUME 9.5 UM3 (9.4-12.4); RED BLOOD COUNT 4.43 M/MM3 (4.00-5.20); WBC - WHITE BLOOD COUNT 9.5 T/MM3 (4.5-11.0)
[2016-09-13 10:08] LABS: ANION GAP 12 MEQ/L (5-15); BUN/CREATININE RATIO 7 RATIO (6-26); CALCIUM 9.1 MG/DL (8.4-10.2); CHLORIDE 107 MEQ/L (98-107); CO2 - CARBON DIOXIDE 25 MEQ/L (22-30); CREATININE 0.6 MG/DL (0.7-1.2); GLOMERULAR FILTRATION RATE 121; GLUCOSE 88 MG/DL (65-110); POTASSIUM 3.7 MEQ/L (3.6-5); SODIUM 144 MEQ/L (134-144)
[2016-09-13 10:09] LABS: INR 1.14 (0.77-1.03); PROTHROMBIN TIME 12.5 SEC (9.48-12.52); PTT 34.5 SEC (24-36)
[2016-09-13] MEDS ORDERED: ONDA4TAB7 PO (10:27)
[2016-09-13 10:33] VITALS: BP 118/65; PULSE 72; RESP 16; TEMP 98.2; O2SAT 96
--- NOTE | 2016-09-13 10:33 | NUR ---
DEPART PT GIVEN DI FOR ACUTE N/V, ZOFRAN, F/U. WORK NOTE PROVIDED FOR TODAY. PT VERBALIZES UNDERSTANDING OF DI. QUESTIONS ASKED/ANSWERED - DENIES FURTHER QUESTIONS/NEEDS AT THIS TIME. PERSONAL BELONGINGS GATHERED. PT ESCORTED/AMBULATED TO ED EXIT - GAIT STABLE, NO SIGN OF DISTRESS. FRIEND AT SIDE.
== END 2016-09-13 10:33 | disposition home or self-care (01) ==
LOC: ED 09:18
DX: O21.9 Vomiting of pregnancy, unspecified (principal); O99.331 Smoking (tobacco) complicating pregnancy, first trimester; Z3A.01 Less than 8 weeks gestation of pregnancy
CPT/HCPCS: 36415; 80048; 85027; 85610; 85730

== ENCOUNTER 2017-05-02 05:30 | Inpatient (IN) ==
[2017-05-02] MEDS ORDERED: FAMOTIDINE PB 20 MG/50 ML BAG IV ONE (05:42)
[2017-05-02] MEDS ORDERED: NOZIN NASAL SWAB NAS ONE (05:42)
[2017-05-02] MEDS ORDERED: CITRIC ACID/SODIUM CITRATE 30ml PO ONE (05:42)
[2017-05-02 05:54] VITALS: BMI 29.0
[2017-05-02] MEDS: LR 1,000 ML IV SCH ×3 (06:27→08:11)
[2017-05-02] MEDS ORDERED: OXYTOCIN BOLUS BAG 30 UNIT/500 ML ML IV SCH (07:00)
[2017-05-02] MEDS ORDERED: CEFAZOLIN PREMIX (MC ONLY) 2 GM/50 ML BAG IV ONE (07:06)
[2017-05-02] MEDS ORDERED: EPHEDRINE 50mg/ml INJECTION ONE (07:15)
[2017-05-02] MEDS ORDERED: SALINE FLUSH 10ml SYRINGE ONE (07:16)
[2017-05-02] MEDS ORDERED: ONDANSETRON 4 MG/2 ML INJECTION IVP ONE (07:35)
[2017-05-02] MEDS ORDERED: MORPHINE SULFATE PF 5mg/10ml INJ (Duramorph) EPI ONE (08:00)
[2017-05-02] MEDS ORDERED: FentaNYL 100 MCG/2 ML INJECTION IVP ONE (08:00)
--- NOTE | 2017-05-02 08:09 | Anesthesia Preoperative Report ---
Anesthesia Preoperative Record - Date and Time Date: 05/02/17 Preoperative Diagnosis: repeat c section Proposed Procedure: repeat NPO Since Date: 05/01/17 NPO Since Time: 23:00 Allergies/Adverse Reactions: Allergies Allergy/AdvReac Type Severity Reaction Status Date / Time latex Allergy Mild ITCHING Verified 05/02/17 05:50 - Vital Signs Vital Signs: Temperature 97.6 F 05/02/17 06:07 Pulse Rate 87 05/02/17 06:07 Respiratory Rate 16 05/02/17 06:07 Blood Pressure 125/82 05/02/17 06:07 Height and Weight: Height 5 ft 5 in Weight 79.27 kg Body Mass Index 29.0 - Medications Inpatient Medications: Current Medications Lactated Ringer's (Lactated Ringers) 1,000 mls @ 999 mls/hr IV .Q1H1M [facility] Last Admin: 05/02/17 07:03 Dose: 999 mls/hr Oxytocin (Pitocin Bolus Bag) 30 unit in 500 mls @ 999 mls/hr IV .Q31M [facility] Stop: 05/02/17 07:30 Last Admin: 05/02/17 07:37 Dose: 999 mls/hr Cefazolin Sodium/Dextrose (Kefzol Premix (Mc Only)) 2 gm in 50 mls @ 100 mls/ hr IV PREOP ONE Stop: 05/02/17 07:35 Last Infusion: 05/02/17 07:32 Dose: Infused Ondansetron HCl (Zofran) 8 mg IVP PREOP ONE Stop: 05/02/17 07:36 Last Admin: 05/02/17 07:37 Dose: 8 mg Home Medications: Home Medications Medication Instructions Recorded Confirmed Type Albuterol Sulfate [Proair Hfa] 1 puff INH DAILY PRN #8 08/26/16 05/02/17 History Is Patient on Beta Missael?: No - Medical History Respiratory: Reports: Bronchitis Cardiovascular: Reports: Heart Murmur (unsure) Neuro/Musculoskeletal: Reports: Depression, Other (soriatic arthritis) Other History: Reports: Now - Surgical History HEENT Surgeries: Reports: Tonsillectomy (t&a) Reproductive Surgery/Treatment: Reports: Section Hx Family Anesthesia Reaction: No History of Motion Sickness: No - Social History Smoking Status: Current every day smoker Hx Chewing Tobacco Use: No Second Hand Exposure: Yes - Pertinent Findings Laboratory: CBC and BMP 05/02/17 06:08 - Physical Exam Respiratory Exam: Present: lungs clear Cardiovascular Exam: Present: regular rate and rhythm - Airway Assessment Mallampati Score: II TMD: 3 Fingerbreadths Neck Extension: good Overall Assessment: may be difficult mask vent, may be difficult intubation - ASA ASA Score: 2 - Plan Anesthesia: Neuroaxial Regional/Trunk Block: Spinal - Discussion Discussion: Discussed risks/options/alternatives of anesthesia and questions answered. Patient consents. Nursing pain assessment noted. Present for Discussion: parent (mother) Attestation Statement: Prior to the delivery of any anesthetic medication, I examined the patient, developed the plan, obtained the patient's consent and discussed the risk and benefits of the procedure with the patient/guardian. - Additional Information Seen by Anesthesia: Yes
[2017-05-02] MEDS ORDERED: ACETAMINOPHEN 500 MG TABLET PO PRN (08:16)
[2017-05-02] MEDS ORDERED: DiphenhydrAMINE 25 MG CAPSULE PO PRN (08:16)
[2017-05-02] MEDS ORDERED: SIMETHICONE 80 MG CHEWABLE TABLET PO PRN (08:16)
[2017-05-02] MEDS ORDERED: CALCIUM CARBONATE Chewable 500mg TABLET PO PRN (08:16)
[2017-05-02] MEDS ORDERED: HYDROCORTISONE 2.5% CREAM 30gm RECTALLY PRN (08:16)
--- NOTE | 2017-05-02 08:22 | Operative Note ---
Operative Note - Date of Operation Date of Operation: 05/02/17 - General : 2 Para: 1 Estimated or Known Gestational Age (weeks): 39 Estimated or Known Gestational Age (days): 0 - Preoperative Diagnosis Previous Section - Postoperative Diagnosis previous section - Procedure Repeat, Low-transverse - Surgeon Surgeon: Maggie Martínez MD - Nutrition Intern OB Nutrition Intern: Ever Tompkins SurgRhonda Assist - Anesthesia Anesthesia Provider: Neftali Zabala CRNA Anesthesia Type: Spinal - Complications Complications: None - Estimated Blood Loss Estimated Blood Loss:: 800 - Findings Findings: viable female, meconium, normal uterus, normal adenexa, cephalic - APGARS : 8,9 - Weight Orange Weight (grams): 3090 - Name Name: Clover - Description of Procedure Description of Procedure: The patient was taken to the operating room where anesthesia was obtained . She was placed in the dorsal supine position with a leftward tilt. A Keating catheter was placed . She was prepared and draped in the normal sterile fashion. A Pfannenstiel incision was made through her previous incision and carried down to the fascia. The fascia was incised in the midline with the scalpel and then extended laterally with the Rogers scissors. The fascia was elevated, and the underlying rectus muscles were dissected off. The peritoneum was entered bluntly. This was extended superiorly and inferiorly with good visualization of the bladder. The bladder blade was inserted. A bladder flap was created sharply. The lower uterine segment was incised in a transverse fashion [id number] with the scalpel and bluntly extended. The membranes were ruptured returning meconium stained fluid. The infants head was delivered atraumatically. The nose and mouth were suctioned. The cord was clamped and cut. The was handed to the waiting resuscitation team. The placenta delivered spontaneously. The uterus was exteriorized and cleared of all clots and debris. The uterus was closed with running, locked 0-monocryl. Two figure of eights were placed on the left edge of the incision for hemostasis. Hemostasis was obtained on the serosal edges with cautery. The uterus was returned to the abdomen. The gutters were cleared of all clots and debris. The uterine incision was inspected one final time and still noted to be hemostatic. The peritoneum was closed with running 2-0 vicryl. Hemostasis was obtained in the rectus muscles with the cautery. The fascia was closed with running 0-vicryl. Hemostasis was obtained in the subcutaneous tissue with the cautery. The deep tissue was closed with running 2-0 chromic. The skin was closed with 4-0 vicryl in a subcuticular manner. Steri-strips were placed. Sponge, sharp, and instrument counts were correct. The patient tolerated the procedure well and was taken to the recovery room in good condition.
[2017-05-02] MEDS ORDERED: NALOXONE 2 MG/2 ML INJECTION PFS IVP PRN (08:28)
[2017-05-02] MEDS ORDERED: OXYTOCIN DRIP 30 UNIT/500 ML ML IV SCH (08:30)
[2017-05-02] MEDS: D5LR 1,000 ML IV SCH ×2 (08:47→20:25)
[2017-05-02] MEDS: IBUPROFEN 800 MG TABLET PO PRN ×2 (10:16→18:34)
[2017-05-02] MEDS: DOCUSATE CALCIUM 240 MG CAPSULE PO SCH (10:16)
[2017-05-02] MEDS: HYDROCODONE/APAP 5mg/325mg TABLET PO PRN ×3 (10:18→18:33)
[2017-05-02] MEDS: SIMETHICONE 80 MG CHEWABLE TABLET PO SCH ×3 (10:22→18:34)
[2017-05-02] MEDS: NOZIN NASAL SWAB NAS SCH (14:27)
[2017-05-03] MEDS: HYDROCODONE/APAP 5mg/325mg TABLET PO PRN ×6 (00:22→20:56)
[2017-05-03] MEDS: SIMETHICONE 80 MG CHEWABLE TABLET PO SCH ×4 (00:22→21:00)
[2017-05-03] MEDS: NOZIN NASAL SWAB NAS SCH ×4 (00:26→16:05)
[2017-05-03] MEDS: IBUPROFEN 800 MG TABLET PO PRN ×2 (04:41→16:03)
--- NOTE | 2017-05-03 08:16 | OB/GYN Progress Note ---
OB-PP Progress Note - General POD:: POD1 - Subjective Date: 05/03/17 Lochia: Moderate Pain: controlled Voiding: brown still in place (clear urine) Nausea or Vomiting Present: No - Objective Vital Signs: Last Vital Signs Temp 98 F 05/03/17 04:00 Pulse 86 05/03/17 04:00 Resp 14 05/03/17 04:00 BP 122/67 05/03/17 04:00 Pulse Ox 99 05/03/17 04:00 Urine Output: good General: alert and oriented Abdomen: fundus firm Incision: clean, dry, intact Extremities: non-tender Laboratory: Laboratory Results - last 24 hr 05/02/17 13:08 WBC 18.0 H RBC 4.04 Hgb 12.0 Hct 36.3 MCV 89.9 MCH 29.7 MCHC 33.1 RDW Std Deviation 43.6 Plt Count 202 MPV 10.5 - Assessment Assessment: Repeat C/S - Plan Plan: routine care (doing well. )
[2017-05-03] MEDS: DOCUSATE CALCIUM 240 MG CAPSULE PO SCH (08:37)
[2017-05-03] MEDS: VARENICLINE 1 MG TABLET PO SCH (08:37)
[2017-05-04] MEDS: IBUPROFEN 800 MG TABLET PO PRN ×2 (00:43→10:22)
[2017-05-04] MEDS: HYDROCODONE/APAP 5mg/325mg TABLET PO PRN ×3 (00:43→10:22)
[2017-05-04 01:01] VITALS: RESP 16
--- NOTE | 2017-05-04 08:06 | OB/GYN Progress Note ---
OB-PP Progress Note - General PPD2 Maternal Group B Strep: Positive Maternal blood type: O+ Maternal Rubella Status: Immune - Subjective Date: 05/04/17 Lochia: Minimal Pain: controlled Voiding: voiding - Objective Vital Signs: Last Vital Signs Temp 97.9 F 05/04/17 01:00 Pulse 86 05/04/17 01:00 Resp 16 05/04/17 01:00 BP 132/81 05/04/17 01:00 Pulse Ox 99 05/04/17 01:00 General: alert and oriented Abdomen: fundus firm, non-tender Incision: normal, no erythema, dry, intact Extremities: non-tender - Assessment Assessment: Repeat C/S - Plan Plan: routine care, discharge home, continue PNV
[2017-05-04 08:20] VITALS: BP 126/70; PULSE 80; TEMP 97.6; O2SAT 97
[2017-05-04] MEDS: VARENICLINE 1 MG TABLET PO SCH (09:26)
== END 2017-05-04 10:52 | disposition home or self-care (01) | DRG 766 ==
LOC: MC 05:30
PROVIDERS: ADMIT Obstetrics & Gynecology; ATTEND Obstetrics & Gynecology

== ENCOUNTER 2017-05-07 10:28 | Inpatient (IN) ==
[2017-05-07] MEDS ORDERED: ONDANSETRON 4 MG/2 ML INJECTION IVP PRN (11:09)
--- NOTE | 2017-05-07 11:12 | Consult Note ---
Consult Information - Data of Consult Consult date: 05/07/17 Requesting Physician: Mathew Morrissey MD Primary Care Provider: None Family Provider: None - Consult Narrative Reason for consult: Possible Cellulitis History of present illness: Janet is a pleasant 26 yr old female who recently underwent a uncomplicated repeat on 05/02/17 at [facility]. She was discharged on Sunday05/04/17 and has been doing well since that time until yesterday in which she noticed increased erythema, pain and swelling to the right forearm. Due to this concern, she presented to [facility] and was seen this morning by Luci Watson APRN. Given this concern for acute infectious process. Patient was admitted directly under the care of Dr. Morrissey with consultation to the hospitalist service for further medical evaluation and treatment. She is seen on initial consultation while on maternal child unit. She is alert, orientated and pleasant. She given accurate history of Right forearm erythema, swelling just proximal to point of IV lock that was present for 12 hours during her recent hospital stay. She also has a area to erythema 3in diameter of right calf. Past Medical History Patient Stated Medical History Bipolar Disorder psoriasis Tobacco dependence Surgical History: Tonsillectomy. [id number]. -05/02/17 Family History Updates: Parents positive for heart disease and DM - Social History Smoking status: Current every day smoker Substance use type: does not use Alcohol intake frequency: does not drink Housing: house Current occupational status: employed (Works at [employer]) Does patient use chewing tobacco?: No Review of Systems All systems PM: 10-point ROS was reviewed, no additional remarkable complaints except - Integumentary/Breasts Integumentary: Present: as per HPI, erythema (Right forearm), swelling Medications Home Medications Medication Instructions Recorded Confirmed Type Albuterol Sulfate [Proair Hfa] 1 puff INH DAILY PRN #8 08/26/16 05/02/17 History Allergies Allergy/AdvReac Type Severity Reaction Status Date / Time latex Allergy Mild ITCHING Verified 05/02/17 05:50 Exam - Constitutional Present: no acute distress, well nourished, well developed - Routine HEENT Exam Eye: Present: EOMI ENT: Present: mucous membranes moist, dentition normal - Routine Respiratory Exam Present: CTA bilaterally. Absent: wheezes - Routine Cardiovascular Exam Present: RRR, S1, S2. Absent: murmur - Routine Abdominal Exam Present: soft, normoactive bowel sounds, non distended. Absent: tenderness - Routine Extremities Exam Present: full ROM, pulses intact - Routine Skin Exam Present: intact, erythema (Right forearm), dry, warm - Routine Neurological Exam Present: alert, oriented X3, CN II-XII intact, moving all extremities - Routine Psychiatric Exam Present: normal affect, cooperative Results - Labs CBC & Chem 7: 05/07/17 10:58 05/07/17 10:58 Assessment and Plan (1) Cellulitis Current visit: Yes Status: Acute (2) Erythema of forearm Current visit: Yes Status: Acute (3) S/P Current visit: Yes Status: Acute Assessment and Plan: Impression Possible cellulitis- RUE Erythema of right upper extremity Recent - 05/02/17 Chronic tobacco dependence Bipolar disorder Plan Agree with admission for further medical evaluation and treatment. Appreciate medical consultation by Dr. Morrissey. Obtain the following laboratory studies on admission, CBC, BMP, venous lactate, blood cultures 2. Initiate sepsis workup. qSOFA score- on admission 0/3- reveling low risk for mortality in suspected infection Place patient on IV clindamycin for antimicrobial coverage as this will also cover possible MRSA. Obtain a venous Doppler of the right upper extremity to rule out underlying DVT. Patient may have regular diet. We will continue with IV fluids for gentle hydration. [place] and ibuprofen as needed for pain control. Given recent . Patient requests to continue on Chantix twice a day as she is trying to quit smoking. MiraLAX daily to help with postoperative bowel motivation. Will recheck CBC and BMP tomorrow morning to follow blood counts, renal function and electrolytes. Discuss further orders and plan of care with attending, Dr. Glaser Encourage patient to establish with a primary care provider at time of discharge. Appreciate medical consultation, we will continue to follow patient during her hospitalization. DVT Prophylaxis: SCD's - Physician Narrative Physician: Reji Glaser MD Narrative: Date: 05/07/17 Time: 1600 Have independently interviewed and examined pt. Chart reviewed. Case discussed with Dr Morrissey and my BOOTH MANAGER. Care plan developed with my supervision; agree with above. Presents to clinic secondary to redness and pain to right upper ext on her anterior forearm. Noticed redness yesterday. Has increased significantly since. Area feels very warm to touch, tender to touch. Pain shoots up arm. Able to move hand without problems. No fever/chills. Appetite stable. No change in bowel. Breathing stable. Urine doing well. Lungs: clear bilaterally, no crackles/wheezes/distress CV: regular EXT: erythema on R anterior forearm. Area feels full, but no area or fluctuance. Able to move all digits of right hand well. Plan: Initiate clindamycin for antimicrobial coverage. Sono negative for DVT. Monitor for fluctuance, which would indicate potential developing abscess. IVF for hydration. Monitor lab. RT for tobacco cessation. Hospital Course Summary Disclaimer: The visit summary below is not to be considered part of the above Progress Note. Hospital Course: Impression Possible cellulitis- RUE Erythema of right upper extremity Recent - 05/02/17 Chronic tobacco dependence Bipolar disorder Plan Agree with admission for further medical evaluation and treatment. Appreciate medical consultation by Dr. Morrissey. Obtain the following laboratory studies on admission, CBC, BMP, venous lactate, blood cultures 2. Initiate sepsis workup. qSOFA score- on admission 0/3- reveling low risk for mortality in suspected infection Place patient on IV clindamycin for antimicrobial coverage as this will also cover possible MRSA. Obtain a venous Doppler of the right upper extremity to rule out underlying DVT. Patient may have regular diet. We will continue with IV fluids for gentle hydration. [place] and ibuprofen as needed for pain control. Given recent . Patient requests to continue on Chantix twice a day as she is trying to quit smoking. MiraLAX daily to help with postoperative bowel motivation. Will recheck CBC and BMP tomorrow morning to follow blood counts, renal function and electrolytes. Discuss further orders and plan of care with attending, Dr. Glaser Encourage patient to establish with a primary care provider at time of discharge. Appreciate medical consultation, we will continue to follow patient during her hospitalization. Addendum entered and electronically signed by Paris Bhagat APRN 05/07/17 15 :14: [id number]- Re-examination this afternoon revels improvement in erythema to right forearm however extension of erythema to right calf. Will add H2 NH 3 mariano as this could be a histamine reaction. Claritin PO daily starting now and Pepcid 20 IV BID starting now. Benadryl 25mg as needed. US negative for DVT. Overall appears stable. No evidence of airway involvement or angioedema. Case discussed with attending.
[2017-05-07] MEDS: HYDROCODONE/APAP 7.5 MG/325 MG TABLET PO PRN ×3 (11:20→23:55)
[2017-05-07] MEDS: LR 1,000 ML IV SCH ×2 (11:21→21:30)
[2017-05-07] MEDS: IBUPROFEN 800 MG TABLET PO SCH ×3 (11:24→20:34)
[2017-05-07] MEDS: CLINDAMYCIN PB 600 MG/50 ML BAG IV SCH ×3 (11:25→23:56)
[2017-05-07 11:32] VITALS: BMI 27.8
[2017-05-07] MEDS: VARENICLINE 1 MG TABLET PO SCH ×2 (12:44→21:27)
[2017-05-07] MEDS: POLYETHYL GLYCOL 3350 17gm PACKET PO SCH (12:45)
--- NOTE | 2017-05-07 12:52 | Ultrasound Report ---
EXAM: US venous doppler UE RT LOCATION OF DICTATION: [place] HISTORY: RUE erythema, pain, swelling COMPARISON: No prior studies available for comparison. TECHNIQUE: Multiple real-time grayscale sonographic images were obtained of the right upper extremity with color flow and spectral analysis. FINDINGS: The right internal jugular, subclavian, axillary, brachial, basilic, cephalic, radial, and ulnar veins are widely patent without filling defects to suggest thrombus. The vessels demonstrate normal response to augmentation and compression. No abnormal soft tissue lesions. No fluid collections. IMPRESSION: 1. No evidence for right upper extremity deep venous thrombosis. .
[2017-05-07] MEDS ORDERED: DiphenhydrAMINE 25 MG CAPSULE PO PRN (15:13)
[2017-05-07] MEDS: FAMOTIDINE PB 20 MG/50 ML BAG IV SCH (15:40)
[2017-05-07] MEDS: LORATADINE 10 MG TABLET PO SCH (17:39)
[2017-05-07] MEDS: NS 1,000 ML IV SCH ×2 (20:35→21:26)
[2017-05-08] MEDS: IBUPROFEN 800 MG TABLET PO SCH ×4 (02:32→11:51)
[2017-05-08] MEDS: FAMOTIDINE PB 20 MG/50 ML BAG IV SCH (04:14)
[2017-05-08] MEDS: NS 1,000 ML IV SCH (04:17)
[2017-05-08 04:21] VITALS: RESP 20
[2017-05-08] MEDS: CLINDAMYCIN PB 600 MG/50 ML BAG IV SCH ×2 (06:25→11:51)
[2017-05-08] MEDS: LORATADINE 10 MG TABLET PO SCH (06:25)
[2017-05-08] MEDS: HYDROCODONE/APAP 7.5 MG/325 MG TABLET PO PRN ×2 (06:25→11:51)
[2017-05-08 09:15] VITALS: BP 136/73; PULSE 87; TEMP 97.7
[2017-05-08] MEDS: VARENICLINE 1 MG TABLET PO SCH (09:26)
--- NOTE | 2017-05-08 09:43 | Progress Note ---
- Date 05/08/17 Subjective: Janet is seen today in follow up this morning. She reports that she is feeling better and erythema and swelling of right forearm and right calf have improved. Continued mild tenderness to forearm. Noted area that appears to be a bite at center of right forearm at different location from previous IV site. Pt reports increased itching to right calf. Overall feeling better. No other complaints. She is eager to go home. Objective Vital signs: Temperature 97.7 F 05/08/17 09:00 Pulse Rate 87 05/08/17 09:00 Respiratory Rate 20 05/08/17 09:00 Blood Pressure 136/73 05/08/17 09:00 Height/Weight/BMI: Height 1.65 m Weight 76 kg Body Mass Index 27.8 - Constitutional Present: no acute distress, well nourished, well developed - Routine HEENT Exam Eye: Present: EOMI ENT: Present: mucous membranes moist, dentition normal - Routine Respiratory Exam Present: CTA bilaterally. Absent: wheezes - Routine Cardiovascular Exam Present: RRR, S1, S2. Absent: murmur - Routine Abdominal Exam Present: soft, normoactive bowel sounds, non distended. Absent: tenderness - Routine Extremities Exam Present: full ROM, pulses intact - Routine Skin Exam Present: intact, erythema (Right forearm and right calf- much improved), dry, warm - Routine Neurological Exam Present: alert, oriented X3, CN II-XII intact, moving all extremities - Routine Lymphatic Exam Lymphatic: Absent: adenopathy - Routine Psychiatric Exam Present: normal affect, cooperative Results - Labs CBC & Chem 7: 05/08/17 04:03 05/08/17 04:03 Microbiology Results: Microbiology 05/07/17 10:58 Peripheral/Iv Start Blood Culture - Preliminary Culture Initiated - Results Pending 05/07/17 10:52 Peripheral/Iv Start Blood Culture - Preliminary Culture Initiated - Results Pending Assessment and Plan (1) Cellulitis Status: Acute (2) Erythema of forearm Status: Acute (3) S/P Status: Acute Assessment and Plan: Impression Possible cellulitis- RUE Erythema of right upper extremity Recent - 05/02/17 Chronic tobacco dependence Bipolar disorder Plan Overall feeling better today. Continued improvement if erythema. ?bite vs cellulitis post IV site vs allergic reaction? Continue with IV clindamycin for antimicrobial coverage as this will also cover possible MRSA. Blood culture continue to be pending. Venous Doppler of the right upper extremity negative for acute DVT. Continued PO Claritin and IV Pepcid histamine blockers Dc IV fluids as she is taking in PO Orla and ibuprofen as needed for pain control given recent . Pt eager to be discharged home. Will discuss with attending, Dr Wynn 05/08/2017-10:30 PM-Dr. Wynn I did see the patient this afternoon in her room. She stated she was feeling much better. On examination of her right upper extremity, I can see the marker outline from where she had cellulitis but I do not see any areas of erythema other than some minimal erythema where she had an IV site and then a smaller punctate area where she might of had a bug bite on her forearm. On her leg, she has some small pinpoint areas that may be bug bites. She states these sites itch but she has no pain. I do not see any signs of cellulitis now. She is breathing well. She is eating and drinking well. She feels ready for discharge to home. On exam she is alert and in no acute distress. Chest is clear to auscultation. Cardio vascular reveals regular rate and rhythm. Abdomen is soft and nontender. Skin exam as above. Impression and plan Probable Cellulitis resolved with clindamycin. Cannot rule out bug bite. Will give 6 days of clindamycin. Continue by mouth Claritin and start oral Pepcid. The patient appears stable for dismissal to home. Dr. Morrissey was okay with dismissal today. The patient has an appointment to follow-up with Dr. Morrissey tomorrow. The patient states she is not nursing. - Physician Narrative Narrative: Date: 05/08/17 Time: 0937 Hospital Course Summary Disclaimer: The visit summary below is not to be considered part of the above Progress Note. Hospital Course: Impression Possible cellulitis- RUE Erythema of right upper extremity Recent - 05/02/17 Chronic tobacco dependence Bipolar disorder Plan Agree with admission for further medical evaluation and treatment. Appreciate medical consultation by Dr. Morrissey. Obtain the following laboratory studies on admission, CBC, BMP, venous lactate, blood cultures 2. Initiate sepsis workup. qSOFA score- on admission 0/3- reveling low risk for mortality in suspected infection Place patient on IV clindamycin for antimicrobial coverage as this will also cover possible MRSA. Obtain a venous Doppler of the right upper extremity to rule out underlying DVT. Patient may have regular diet. We will continue with IV fluids for gentle hydration. Orla and ibuprofen as needed for pain control. Given recent . Patient requests to continue on Chantix twice a day as she is trying to quit smoking. MiraLAX daily to help with postoperative bowel motivation. Will recheck CBC and BMP tomorrow morning to follow blood counts, renal function and electrolytes. Discuss further orders and plan of care with attending, Dr. Glaser Encourage patient to establish with a primary care provider at time of discharge. Appreciate medical consultation, we will continue to follow patient during her hospitalization. 05/08 Overall feeling better today. Continued improvement if erythema. ?bite vs cellulitis post IV site vs allergic reaction? Continue with IV clindamycin for antimicrobial coverage as this will also cover possible MRSA. Blood culture continue to be pending. Venous Doppler of the right upper extremity negative for acute DVT. Continued PO Claritin and IV Pepcid histamine blockers Dc IV fluids as she is taking in PO Orla and ibuprofen as needed for pain control given recent . Pt eager to be discharged home. Will discuss with attending, Dr Wynn
--- NOTE | 2017-05-08 09:44 | Progress Note ---
Progress Note: af, vss r arm less swollen and no longer hot to touch am cbc has lowered wbc but still bands. hgb also decreased so may be partly dilutional management per hospitalists q&a-krb
[2017-05-08] MEDS: POLYETHYL GLYCOL 3350 17gm PACKET PO SCH (10:44)
--- NOTE | 2017-05-08 14:25 | Progress Note ---
- Date 05/08/17 Objective Vital signs: Temperature 97.7 F 05/08/17 09:00 Pulse Rate 87 05/08/17 09:00 Respiratory Rate 20 05/08/17 09:00 Blood Pressure 136/73 05/08/17 09:00 Height/Weight/BMI: Height 1.65 m Weight 76 kg Body Mass Index 27.8 Results - Labs CBC & Chem 7: 05/08/17 04:03 05/08/17 04:03 Microbiology Results: Microbiology 05/07/17 10:58 Peripheral/Iv Start Blood Culture - Preliminary No Growth After 1 Day 05/07/17 10:52 Peripheral/Iv Start Blood Culture - Preliminary No Growth After 1 Day Assessment and Plan (1) Cellulitis Current visit: Yes Status: Acute (2) Erythema of forearm Current visit: Yes Status: Acute (3) S/P Current visit: Yes Status: Acute Assessment and Plan: Impression Possible cellulitis- RUE Erythema of right upper extremity Recent - 05/02/17 Chronic tobacco dependence Bipolar disorder Plan Overall feeling better today. Continued improvement if erythema. ?bite vs cellulitis post IV site vs allergic reaction? Continue with IV clindamycin for antimicrobial coverage as this will also cover possible MRSA. Blood culture continue to be pending. Venous Doppler of the right upper extremity negative for acute DVT. Continued PO Claritin and IV Pepcid histamine blockers Dc IV fluids as she is taking in PO Cassandra and ibuprofen as needed for pain control given recent . Pt eager to be discharged home. Will discuss with attending, Dr Wynn - Physician Narrative Narrative: Date: 05/08/17 Time: 1416 Hospital Course Summary Disclaimer: The visit summary below is not to be considered part of the above Progress Note. Hospital Course: Impression Possible cellulitis- RUE Erythema of right upper extremity Recent - 05/02/17 Chronic tobacco dependence Bipolar disorder Plan Agree with admission for further medical evaluation and treatment. Appreciate medical consultation by Dr. Morrissey. Obtain the following laboratory studies on admission, CBC, BMP, venous lactate, blood cultures 2. Initiate sepsis workup. qSOFA score- on admission 0/3- reveling low risk for mortality in suspected infection Place patient on IV clindamycin for antimicrobial coverage as this will also cover possible MRSA. Obtain a venous Doppler of the right upper extremity to rule out underlying DVT. Patient may have regular diet. We will continue with IV fluids for gentle hydration. Cassandra and ibuprofen as needed for pain control. Given recent . Patient requests to continue on Chantix twice a day as she is trying to quit smoking. MiraLAX daily to help with postoperative bowel motivation. Will recheck CBC and BMP tomorrow morning to follow blood counts, renal function and electrolytes. Discuss further orders and plan of care with attending, Dr. Glaser Encourage patient to establish with a primary care provider at time of discharge. Appreciate medical consultation, we will continue to follow patient during her hospitalization. 05/08 Overall feeling better today. Continued improvement if erythema. ?bite vs cellulitis post IV site vs allergic reaction? Continue with IV clindamycin for antimicrobial coverage as this will also cover possible MRSA. Blood culture continue to be pending. Venous Doppler of the right upper extremity negative for acute DVT. Continued PO Claritin and IV Pepcid histamine blockers Dc IV fluids as she is taking in PO Cassandra and ibuprofen as needed for pain control given recent . Pt eager to be discharged home. Will discuss with attending, Dr Wynn
[2017-05-08] MEDS ORDERED: DIPHENHYDRAMINE 2% CREAM 28gm TOP SCH (15:00)
== END 2017-05-08 15:25 | disposition home or self-care (01) | DRG 602 ==
LOC: MC 10:28
PROVIDERS: ADMIT Obstetrics & Gynecology; ATTEND Obstetrics & Gynecology